=== PATIENT | female | born 1990 | race Caucasian/White ===

== ENCOUNTER → 2019-10-01 14:21 | Outpatient (BNVA) | payer OTHER, SELFPAY | PROVIDERS: Family Provider Family Medicine; Visit Provider Internal Medicine | DX: Z20.89 Contact with and (suspected) exposure to other communicable diseases (principal) | CPT/HCPCS: 87635 ==

== ENCOUNTER 2020-05-18 07:03 | Outpatient (CLI) | payer OTHER, BC, MEDICAID, SELFPAY ==
--- NOTE | 2020-05-18 07:10 | US_ITS ---
WS: [id number] EARLY OBSTETRICAL ULTRASOUND (<14 WEEKS). HISTORY: SUPERVISION NORMAL COMPARISON: None available. Single intrauterine gestational sac is identified. Cardiac activity at 147 BPM. Burwell-rump length jose sures 1.2 cm which corresponds to a gestation of 7w3d. Normal-appearing yolk sac and amnion demonstra caitlin. No subchorionic hemorrhage. No free fluid. Normal size ovaries with no mass. US/US OB <= 14 weeks fetus [id number] IMPRESSION: 1. Single intrauterine gestation of 7 weeks 3 days with an EDC of 01/01/2021. 2. No complications.
== END 2020-05-18 07:04 | disposition home or self-care (01) ==
LOC: US 07:06
PROVIDERS: PCP Family Medicine; Visit Provider Family Medicine
DX: Z34.81 Encounter for supervision of other normal pregnancy, first trimester; Z3A.01 Less than 8 weeks gestation of pregnancy
CPT/HCPCS: 76801

== ENCOUNTER 2020-06-21 10:31 | Outpatient (CLI) | payer OTHER, BC, MEDICAID, SELFPAY ==
--- NOTE | 2020-06-21 10:34 | US_ITS ---
WS: [id number] ULTRASOUND EARLY TECHNIQUE: Transabdominal sonography of the pelvis was performed. CLINICAL INFORMATION: ABSENT HEART TONES,UNSPECIFIED TRIMESTER LMP: 03/28/2020 Beta hCG: Unknown. COMPARISON: May 18, 2020 FINDINGS: Cervix is long and closed measuring 7.8 cm UTERUS AND GESTATIONAL SAC Intrauterine gestations: Estimated gestational age: 12w4d Estimated delivery December 30, 2020 Torrey rump length (CRL): 6.2 cm. heart motion: 171 BPM. Subchorionic hemorrhage: None. OVARIES Right ovary: Normal. Left ovary: Normal. FREE FLUID None. US/US OB limited [id number] IMPRESSION: 1. Single live intrauterine . 2. Estimated gestational age; 12w4d 3. Estimated delivery December 30, 2020 4. Normal adnexa.
== END 2020-06-21 10:32 | disposition home or self-care (01) ==
PROVIDERS: PCP Family Medicine; Visit Provider Family Medicine
DX: O36.8990 Maternal care for other specified fetal problems, unspecified trimester, not applicable or unspecified (principal); Z3A.12 12 weeks gestation of pregnancy
CPT/HCPCS: 76815

== ENCOUNTER 2020-07-21 08:28 | Outpatient (CLI) | payer OTHER, BC, MEDICAID, SELFPAY ==
--- NOTE | 2020-07-21 08:46 | US_ITS ---
WS: [id number] ULTRASOUND OB LIMITED TECHNIQUE: Limited ultrasound examination of the fetus. CLINICAL INFORMATION: ABSENT HEART TONES COMPARISON: June 21, 2020 FINDINGS: Cervix measures 3.8 cm Single interuterine gestation. presentation is cephalic Placental location is anterior. Placenta grade: 0. heart rate 160 BPM. Normal amniotic fluid volume. Anatomy: BDP: 3.6 cm = 17 weeks 1 day HC: 13.6 cm = 17 weeks 1 day AC: 11.8 cm = 17 weeks 4 days FEMUR LENGTH: 2.4 cm = 17 weeks 3 days Estimated weight: 196 g EGA by ultrasound: 17 weeks 2 days NIRAJ by ultrasound: December 27, 2020 [place] [id number] IMPRESSION: 1. Cervix is long and closed. 2. Placenta is anterior grade 0. 3. Normal amniotic fluid volume. 4. Gestational age 17 weeks 2 days with estimated delivery December 27, 2020
== END 2020-07-21 08:29 | disposition home or self-care (01) ==
PROVIDERS: PCP Family Medicine; Visit Provider Family Medicine
DX: O36.8920 Maternal care for other specified fetal problems, second trimester, not applicable or unspecified; Z3A.17 17 weeks gestation of pregnancy
CPT/HCPCS: 76816

== ENCOUNTER 2020-08-09 10:56 | Outpatient (CLI) | payer OTHER, BC, MEDICAID, SELFPAY ==
--- NOTE | 2020-08-09 11:04 | US_ITS ---
WS: [id number] OBSTETRICAL ULTRASOUND COMPLETE HISTORY: SUPERVISION OF NORMAL COMPARISON: 05/18/2020 and 06/22/199910/03 and 07/21/2020 Single intrauterine gestation in transverse presentation. Cervix is Closed and normal length. Cervical length is 5.0 cm. Normal amount of amniotic fluid surrounds the fetus. Placenta: Anterior, no previa or abruption. Placenta grade 1 Heart: 157 BPM. 4 chamber heart not well visualized. Outflow tracts are difficult to visualize. Anatomy: Intracranial structures and spine are normal. kidneys, stomach and urinary bladd er are unremarkable. Cord insertion site and three-vessel cord are limited. 4 extremities are present. profile: Not visualized. Gender: Female. measurements: BPD = 4.5 cm = 19w4d HC = 17.3 cm = 19w6d AC = 14.3 cm = 19w4d FL = 3.3 cm = 20w3d EFW: 324 g. Biometry is internally concordant. AGA by ultrasound: 20w0d NIRAJ by ultrasound: 12/27/2020 US/US OB >= 14 weeks fetus [id number] IMPRESSION: 1. Single intrauterine gestation of 20w0d with an NIRAJ of 12/27/2020. Appropria te growth since the first trimester ultrasound. 2. Limited evaluation of the heart is fluid in the four-chamber view and outflow tracts, abdominal wall and cord insertion site and profile. The remaining anatomy is negative. Consider 3-4 week follow-up.
== END 2020-08-09 10:57 | disposition home or self-care (01) ==
PROVIDERS: PCP Family Medicine; Visit Provider Family Medicine
DX: Z34.92 Encounter for supervision of normal pregnancy, unspecified, second trimester; Z3A.20 20 weeks gestation of pregnancy
CPT/HCPCS: 76805

== ENCOUNTER 2020-08-24 04:17 | Emergency (ER) | payer OTHER, BC, MEDICAID, SELFPAY ==
[2020-08-24 04:35] VITALS: BP 130/77; PULSE 94; RESP 17; TEMP 36.8; O2SAT 99; BMI 43.7
[2020-08-24 04:43] VITALS: BP 121/74; O2SAT 96
--- NOTE | 2020-08-24 04:45 | ED_ITS ---
Documented by User: Gail Tineo MD 08/24/20 04:46 HPI - Abdominal Pain General: Chief Complaint: Abdominal Pain Stated Complaint: RIGHT SIDE RIB PAIN Time Seen by Provider: 08/24/20 04:20 Source: patient Mode of arrival: ambulatory Limitations: no limitations History of Present Illness: HPI narrative: 30-year-old female who is currently 21 weeks states she woke up tonight with a pain in her left upper quadrant that radiated to her epigastric region. She states that she burped a couple times as well. She states she then took 2 Tums the pain is since improved. He states the pain at worst was an 8 out of 10 her pain currently is a 2 out of 10. Denies any lower abdominal pain or vaginal bleeding. Denies any vomiting. Associated Symptoms: Reports nausea; Denies chills, dysuria and fever(s) Review of Systems Const: Denies: fever(s), chills, body aches or change in appetite Eyes: Denies: blurry vision or eye discomfort ENMT: Denies: throat pain or dental pain Card: Denies: chest pain Resp: Denies: dyspnea GI: Reports: abdominal pain and nausea : Denies: dysuria Musc: Denies: neck pain or back pain Skin/Breast: Denies: rash Neuro: Denies: headache(s) Psych: Denies: depression Ashkan/Lymph: Denies: easy bruising All/Imm: Denies: urticaria Physical Exam Const: COMMON NORMALS: no acute distress, patient oriented x3 and healthy appearing HENMT: COMMON NORMALS: normocephalic and atraumatic HEAD & SCALP: normocephalic and atraumatic Eye: COMMON NORMALS: Equal, round and reactive pupils present and EOMs intact bilaterally PUPIL: Yes Equal, round and reactive pupils present Neck/C-Spine: COMMON NORMALS: full ROM and supple Chest: COMMONS NORMALS: normal inspection of the chest and normal palpation of entire chest wall Resp: COMMON NORMALS: normal respiratory effort, No retractions, No use of accessory muscles and clear to auscultation bilaterally AUSCULTATION: clear to auscultation bilaterally Cardio: COMMON NORMALS: regular rate, regular rhythm and No murmurs present (Cardio) RATE: regular rate RHYTHM: regular rhythm GI: COMMON NORMALS: Normal to inspection, nondistended, normoactive bowel sounds present, Soft to palpation, non-tender and no masses PALPATION: Yes Soft to palpation Extremity: COMMON NORMALS: normal to inspection and full ROM Neuro: COMMON NORMALS: patient oriented x3, moves all extremities and no focal motor deficits Psych: COMMON NORMALS: mental status grossly normal, Normal thought process present and cooperative THOUGHT PROCESS: Normal thought process present Skin: COMMON NORMALS: no rashes or lesions noted and no wounds GENERAL SKIN EXAM: no rashes or lesions noted Course Vital Signs: Vital signs: Vital Signs Temperature 98.2 F 08/24/20 04:35 Pulse Rate 94 08/24/20 04:35 Respiratory Rate 17 08/24/20 04:35 Blood Pressure 121/74 08/24/20 04:43 Pulse Oximetry 96 08/24/20 04:43 MDM - Abdominal Pain Lab Data: Labs: Lab Results 08/24/20 08/24/20 Range/Units 05:40 05:40 WBC 11.4 H (4.0-10.0) 10^3/ uL RBC 4.20 (4.1-5.3) 10^6/u L Hgb 11.1 L (11.5-15.3) g/dL Hct 36.1 L (37.0-47.0) % MCV 86.0 (81-99) fL MCH 26.4 L (28.0-34.0) pg MCHC 30.7 (30.0-36.0) g/dL RDW 15.1 (12.1-15.1) % Plt Count 269 (130-400) 10^3/c mm MPV 11.1 H (7.4-10.4) fL Neut % (Auto) 74.9 % Lymph % (Auto) 18.8 % Coke % (Auto) 4.3 % Eos % (Auto) 1.2 % Baso % (Auto) 0.3 % Neut # (Auto) 8.53 H (1.8-7.7) 10^3/u L Lymph # (Auto) 2.1 (0.8-4.8) 10^3/u L Coke # (Auto) 0.5 (0.2-0.9) 10^3/u L Eos # (Auto) 0.1 (0.0-0.8) 10^3/u L Baso # (Auto) 0.0 (0.0-0.1) 10^3/u L Nucleated RBC % (a uto) 0 % Nucleated RBCs # 0.0 /100WBC Sodium 138 (136-145) mmol/L Potassium 3.7 (3.5-5.1) mmol/L Chloride 106 (98-107) mmol/L Carbon Dioxide 22 (22-29) mmol/L Anion Gap 13.7 (5-19) BUN 8 (6-20) mg/dL Creatinine 0.5 (0.5-0.9) mg/dL GFR Calculation 144.9 H (90-130) mL/min Glucose 107 (65-115) mg/dL Calculated Osmolal ity 285 (285-295) mOsm/k g Calcium 8.8 (8.5-10.5) mg/dL Total Bilirubin 0.2 (0.15-1.2) mg/dL AST 20 (0-32) U/L ALT 13 (0-33) U/L Alkaline Phosphata se 121 H (35-105) IU/L Total Protein 6.5 L (6.6-8.7) g/dL Albumin 3.4 L (3.5-5.2) g/dL Globulin 3.1 (1.3-4.6) g/dL Lipase 32 (13-60) U/L Discharge Plan Discharge Patient Disposition: Home Clinical Impression: Biliary colic, Second trimester , Cholelithiasis affecting in second trimester, antepartum Abdominal pain Qualifiers: Abdominal location: epigastric Qualified Code(s): R10.13 - Epigastric pain Condition: Stable Prescriptions: New hydrocodone-acetaminophen 5-325 mg tablet 1 tab PO Q6H PRN (Reason: pain) Qty: 12 RF: 0 Zofran 4 mg tablet 4 mg PO Q6H PRN (Reason: nausea and vomiting) Qty: 10 RF: 2 Discharge Orders: Discharge ED (Routine); Ordered 08/24/20 Ordered By: Phil Emmanuel Referrals: Papito Peres MD [Physician] - (For evaluation of gallstones.) Jeremie Kay MD [Primary Care Provider] - Discharge Diet: Low Fat Discharge Activity: Increase activity as tolerated Patient Instructions: Cholelithiasis, Biliary Colic (ED), Abdominal Pain (ED), Opioid Safety Activity Restrictions/Additional Instructions: You have gallstones in your gallbladder but no inflammation of the gallbladder. Avoid fatty foods as this will stimulate the gallbladder to contract and cause more pain if you eat fatty foods. Follow-up with general surgeon as needed but will likely need to wait until after for your gallbladder removal. Return if problems. Coding Level of Care Code ED Airplane Pilot Photogrammetry for Chg Fwd Exam Comprehensive Documented by User: Phil Emmanuel MD 08/24/20 08:06 HPI - Abdominal Pain General: Chief Complaint: Abdominal Pain Stated Complaint: RIGHT SIDE RIB PAIN Time Seen by Provider: 08/24/20 04:20 Physical Exam GI: COMMON NORMALS: Soft to palpation (Obese, gravid consistent with dates, mild epigastric and luq pain; nabs) and No hepatosplenomegaly present PALPATION: Yes Soft to palpation (Obese, gravid consistent with dates, mild epigastric and luq pain; nabs) and Yes No hepatosplenomegaly present Course ED course: heart tones 160/min Vital Signs: Vital signs: Vital Signs Temperature 98.2 F 08/24/20 04:35 Pulse Rate 94 08/24/20 04:35 Respiratory Rate 17 08/24/20 04:35 Blood Pressure 121/74 08/24/20 04:43 Pulse Oximetry 96 08/24/20 04:43 MDM - Abdominal Pain MDM Narrative: Medical decision making narrative: 0555: assumed care from dr. tineo Lab Data: Attestation: I reviewed the patient's lab results. Labs: Lab Results 08/24/20 08/24/20 Range/Units 05:40 05:40 WBC 11.4 H (4.0-10.0) 10^3/ uL RBC 4.20 (4.1-5.3) 10^6/u L Hgb 11.1 L (11.5-15.3) g/dL Hct 36.1 L (37.0-47.0) % MCV 86.0 (81-99) fL MCH 26.4 L (28.0-34.0) pg MCHC 30.7 (30.0-36.0) g/dL RDW 15.1 (12.1-15.1) % Plt Count 269 (130-400) 10^3/c mm MPV 11.1 H (7.4-10.4) fL Neut % (Auto) 74.9 % Lymph % (Auto) 18.8 % Coke % (Auto) 4.3 % Eos % (Auto) 1.2 % Baso % (Auto) 0.3 % Neut # (Auto) 8.53 H (1.8-7.7) 10^3/u L Lymph # (Auto) 2.1 (0.8-4.8) 10^3/u L Coke # (Auto) 0.5 (0.2-0.9) 10^3/u L Eos # (Auto) 0.1 (0.0-0.8) 10^3/u L Baso # (Auto) 0.0 (0.0-0.1) 10^3/u L Nucleated RBC % (a uto) 0 % Nucleated RBCs # 0.0 /100WBC Sodium 138 (136-145) mmol/L Potassium 3.7 (3.5-5.1) mmol/L Chloride 106 (98-107) mmol/L Carbon Dioxide 22 (22-29) mmol/L Anion Gap 13.7 (5-19) BUN 8 (6-20) mg/dL Creatinine 0.5 (0.5-0.9) mg/dL GFR Calculation 144.9 H (90-130) mL/min Glucose 107 (65-115) mg/dL Calculated Osmolal ity 285 (285-295) mOsm/k g Calcium 8.8 (8.5-10.5) mg/dL Total Bilirubin 0.2 (0.15-1.2) mg/dL AST 20 (0-32) U/L ALT 13 (0-33) U/L Alkaline Phosphata se 121 H (35-105) IU/L Total Protein 6.5 L (6.6-8.7) g/dL Albumin 3.4 L (3.5-5.2) g/dL Globulin 3.1 (1.3-4.6) g/dL Lipase 32 (13-60) U/L Imaging Data ^: US: Radiologist's impression: Ban Joiner #: [id number]: 09/1990Acct#:[id number]/Sex: 30 / FADM Date: 08/24/20Loc: ERRoom/Bed:Attending Dr: Ordering Provider/Ordering MD: Phil Emmanuel MD Date of Service: 08/24/20 Procedure(s): US gall bladder [id number] Accession Number(s): [id number] Report Number: [id number] WS: [id number] RIGHT UPPER QUADRANT ULTRASOUND HISTORY: upper abd pain COMPARISON: None available. Liver: 17.5 cm in length. Liver is top normal to slightly enlarged with mild hepatic steatosis. No mass or bile duct dilatation. Gallbladder: Gallbladder is normally distended. No wall thickening or pericholecystic fluid. Numerous stones with shadowing in the dependent portion of the gallbladder. CBD: 0.5 cm Pancreas: Normal size and echogenicity. Right kidney: 12.4 cm in length. Normal size and echogenicity. No hydronephrosis or mass. Aorta and IVC: Unremarkable abdominal aorta and IVC. No ascites. US/US gall bladder [id number] IMPRESSION: 1. Cholelithiasis. Otherwise no evidence for acute cholecystitis. No gallbladder hydrops or wall thickening. 2. Normal common bile duct. Dictated By:Angelica Campbell DOSigned By:Angelica Campbell DOSigned Date/Time:08/24/20 0740 Discharge Plan Discharge Patient Disposition: Home Clinical Impression: Biliary colic, Second trimester , Cholelithiasis affecting in second trimester, antepartum Abdominal pain Qualifiers: Abdominal location: epigastric Qualified Code(s): R10.13 - Epigastric pain Condition: Stable Prescriptions: New hydrocodone-acetaminophen 5-325 mg tablet 1 tab PO Q6H PRN (Reason: pain) Qty: 12 RF: 0 Zofran 4 mg tablet 4 mg PO Q6H PRN (Reason: nausea and vomiting) Qty: 10 RF: 2 Discharge Orders: Discharge ED (Routine); Ordered 08/24/20 Ordered By: Phil Emmanuel Referrals: Papito Peres MD [Physician] - (For evaluation of gallstones.) Jeremie Kay MD [Primary Care Provider] - Discharge Diet: Low Fat Discharge Activity: Increase activity as tolerated Patient Instructions: Cholelithiasis, Biliary Colic (ED), Abdominal Pain (ED), Opioid Safety Activity Restrictions/Additional Instructions: You have gallstones in your gallbladder but no inflammation of the gallbladder. Avoid fatty foods as this will stimulate the gallbladder to contract and cause more pain if you eat fatty foods. Follow-up with general surgeon as needed but will likely need to wait until after for your gallbladder removal. Return if problems. Coding Level of Care Code ED Airplane Pilot Photogrammetry for Chg Fwd Exam Comprehensive
[2020-08-24] MEDS: lidocaine 2% viscous 15 ML, aluminum-mag hydrox-simethicon 30 ML, sucralfate oral liq 1 GM PO (05:15)
--- NOTE | 2020-08-24 05:59 | US_ITS ---
WS: [id number] RIGHT UPPER QUADRANT ULTRASOUND HISTORY: upper abd pain COMPARISON: None available. Liver: 17.5 cm in length. Liver is top normal to slightly enlarged with mild hepatic steatosis. No ma ss or bile duct dilatation. Gallbladder: Gallbladder is normally distended. No wall thickening or pericholecystic fluid. Numerous stones with shadowing in the dependent portion of the gallbladder. CBD: 0.5 cm Pancreas: Normal size and echogenicity. Right kidney: 12.4 cm in length. Normal size and echogenicity. No hydronephrosis or mass. Aorta and IVC: Unremarkable abdominal aorta and IVC. No ascites. US/US gall bladder [id number] IMPRESSION: 1. Cholelithiasis. Otherwise no evidence for acute cholecystitis. No gallbladd er hydrops or wall thickening. 2. Normal common bile duct.
[2020-08-24 06:14] LABS: Basophils % 0.3 %; Eosinophils # 0.1 10^3/uL (0.0-0.8); Eosinophils % 1.2 %; Hematocrit 36.1 % (37.0-47.0); Hemoglobin 11.1 g/dL (11.5-15.3); Lymphocytes # 2.1 10^3/uL (0.8-4.8); Lymphocytes % 18.8 %; Mean Corpuscular HGB Conc 30.7 g/dL (30.0-36.0); Mean Corpuscular Hemoglobin 26.4 pg (28.0-34.0); Mean Platelet Volume 11.1 fL (7.4-10.4); Monocytes # 0.5 10^3/uL (0.2-0.9); Monocytes % 4.3 %; Neutrophils # 8.53 10^3/uL (1.8-7.7); Neutrophils % 74.9 %; Nucleated Red Blood Cells % 0 %; Platelet Count 269 10^3/cmm (130-400); Red Cell Distribution Width 15.1 % (12.1-15.1); White Blood Count 11.4 10^3/uL (4.0-10.0)
[2020-08-24] MEDS: famotidine 20 mg/2 mL INJ IVP (06:25)
[2020-08-24 06:30] LABS: Alanine Aminotransferase 13 U/L (0-33); Albumin Level 3.4 g/dL (3.5-5.2); Alkaline Phosphatase 121 IU/L (35-105); Anion Gap 13.7 (5-19); Aspartate Amino Transferase 20 U/L (0-32); Blood Urea Nitrogen 8 mg/dL (6-20); Calcium 8.8 mg/dL (8.5-10.5); Carbon Dioxide 22 mmol/L (22-29); Chloride 106 mmol/L (98-107); Globulin 3.1 g/dL (1.3-4.6); Glomerular Filtration Rate 144.9 mL/min (90-130); Glucose 107 mg/dL (65-115); Lipase 32 U/L (13-60); Osmolality Calculated 285 mOsm/kg (285-295); Potassium 3.7 mmol/L (3.5-5.1); Sodium 138 mmol/L (136-145); Total Bilirubin 0.2 mg/dL (0.15-1.2); Total Protein 6.5 g/dL (6.6-8.7)
[2020-08-24 08:22] VITALS: BP 137/73; PULSE 89; RESP 18; O2SAT 98
== END 2020-08-24 08:19 | disposition home or self-care (01) ==
PROVIDERS: Emergency Medicine; Emergency Provider Family Medicine; PCP Family Medicine
DX: O99.612 Diseases of the digestive system complicating pregnancy, second trimester (principal); K80.20 Calculus of gallbladder without cholecystitis without obstruction; Z3A.21 21 weeks gestation of pregnancy
CPT/HCPCS: 76705; 80053; 83690; 85025; 96374; 99283; J3490

== ENCOUNTER 2020-08-24 15:17 | Outpatient (CLI) | payer OTHER, BC, MEDICAID, SELFPAY ==
--- NOTE | 2020-08-24 15:49 | US_ITS ---
WS: [id number] ULTRASOUND OB FOCUSED HISTORY: F/U US Heart, facial PROFILE AND STOMACH WALL/umbilical cord COMPARISON: 08/09/2020 Cervix is closed measuring 5 cm in length. Fetus is in breech position. Continued limited evaluation. profile and four-chamber heart are still not very well visualized. Cord insertion site and abd ominal wall are not well visualized. heart rate at 141 BPM. Normal amount of amniotic fluid. US/[place] [id number] IMPRESSION: Continued very limited evaluation of four-chamber heart, profile and abdo boby wall. Difficulties secondary to body habitus and position of the fetus.
== END 2020-08-24 15:18 | disposition home or self-care (01) ==
PROVIDERS: PCP Family Medicine; Visit Provider Family Medicine
DX: Z34.80 Encounter for supervision of other normal pregnancy, unspecified trimester (principal)
CPT/HCPCS: 76816

== ENCOUNTER 2020-09-27 14:58 | Outpatient (CLI) | payer OTHER, BC, MEDICAID, SELFPAY ==
--- NOTE | 2020-09-27 15:17 | US_ITS ---
WS: [id number] ULTRASOUND OB LIMITED TECHNIQUE: Limited ultrasound examination of the fetus. CLINICAL INFORMATION: FOLLOW UP HEART, CORD INSERT, STOMACH AND PROFILE COMPARISON: August 24, 2020 FINDINGS: Cervix measures 4.7 cm Single interuterine gestation. presentation is vertex Placental location is anterior. Placenta grade: 0. heart rate 141 BPM. Anatomy: profile, four-chamber heart, right ventricular outflow tract, and cord insertion are normal tod ay. Left ventricular outflow tract not well visualized. US/[place] [id number] IMPRESSION: 1. Closed cervix measures 4.7 CM. 2. presentation is vertex. 3. profile, four-chamber heart, right ventricular outflow tract, and cor d insertion are normal today. Left ventricular outflow tract not well visualize d.
== END 2020-09-27 14:59 | disposition home or self-care (01) ==
LOC: US 14:59
PROVIDERS: PCP Family Medicine; Visit Provider Family Medicine
DX: Z36.89 Encounter for other specified antenatal screening (principal)
CPT/HCPCS: 76816

== ENCOUNTER 2020-10-05 20:28 | Outpatient (CLI) | payer OTHER, BC, MEDICAID, SELFPAY ==
[2020-10-05 20:43] VITALS: BP 120/66; PULSE 81; TEMP 36.4
[2020-10-05 21:15] VITALS: RESP 18
[2020-10-05 21:18] VITALS: BMI 43.0
[2020-10-05 21:37] LABS: Charge for UA Resulting for Rev
[2020-10-05 21:51] LABS: Add Urine Microscopic? YES; Bacteria Urine 3+ /hpf; Bilirubin Urine Neg (Negative); Blood Urine Neg (Negative); Glucose Urine UA Norm (Normal); Ketones Urine Negative (Negative); Leukocyte Esterase Urine Trace (Negative); Mucus Urine 1+ /hpf; Nitrate Urine Negative (Negative); Protein Urine Neg (Negative); Specific Gravity, Urine 1.005 (1.005-1.030); Urine Appearance Clear (CLEAR); Urine Color Straw (Yellow); Urobilinogen Urine Norm (Negative); pH Urine 7 (5-7)
[2020-10-05 21:52] LABS: Add Urine Culture? Yes
[2020-10-05 22:13] VITALS: BP 124/63; PULSE 76
== END 2020-10-05 22:45 | disposition home or self-care (01) ==
LOC: OPOB 20:35 → OBGYN 20:36
PROVIDERS: PCP Family Medicine; Visit Provider Family Medicine
DX: O26.899 Other specified pregnancy related conditions, unspecified trimester (principal); Z3A.00 Weeks of gestation of pregnancy not specified; R10.9 Unspecified abdominal pain
CPT/HCPCS: 81001; 81003; 87086

== ENCOUNTER 2020-10-29 09:27 | Outpatient (CLI) | payer OTHER, BC, MEDICAID, SELFPAY ==
--- NOTE | 2020-10-29 09:34 | US_ITS ---
WS: [id number] ULTRASOUND OB LIMITED TECHNIQUE: Limited ultrasound examination of the fetus. CLINICAL INFORMATION: SUPERVISION OF NORMAL /EFW/WILLIAM COMPARISON: September 27, 2020 FINDINGS: Cervix measures 6.2 cm Single interuterine gestation. presentation is breech Placental location is anterior. Placenta grade: 1 heart rate 164 BPM. Anatomy: BDP: 8.1 cm = 32w3d HC: 30.1 cm = 33w3d AC: 26.8 cm = 30w6d FEMUR LENGTH: 6.0 cm = 31w0d Estimated weight: 1735 g EGA by ultrasound: 32w0d NIRAJ by ultrasound: 12/24/2020 US/[place] [id number] IMPRESSION: 1. Cervix is long and closed measuring 6.2 cm 2. WILLIAM 13.1 cm just below the median 3. presentation is breech.
== END 2020-10-29 09:28 | disposition home or self-care (01) ==
PROVIDERS: PCP Family Medicine; Visit Provider Family Medicine
DX: O32.1XX0 Maternal care for breech presentation, not applicable or unspecified (principal); Z3A.32 32 weeks gestation of pregnancy
CPT/HCPCS: 76816

== ENCOUNTER 2020-11-25 08:50 | Outpatient (CLI) | payer OTHER, BC, MEDICAID, SELFPAY ==
[2020-11-25] VITALS (29 sets, daily range): BP systolic 108–125; BP diastolic 65–76; PULSE 80–110; RESP 16; TEMP 36.5; O2SAT 92–99; BMI 43.2
[2020-11-25 10:12] LABS: Basophils % 0.2 %; Eosinophils # 0.1 10^3/uL (0.0-0.8); Eosinophils % 0.8 %; Hematocrit 36.1 % (37.0-47.0); Hemoglobin 11.3 g/dL (11.5-15.3); Lymphocytes # 1.7 10^3/uL (0.8-4.8); Lymphocytes % 15.2 %; Mean Corpuscular HGB Conc 31.3 g/dL (30.0-36.0); Mean Platelet Volume 11.7 fL (7.4-10.4); Monocytes # 0.5 10^3/uL (0.2-0.9); Monocytes % 4.3 %; Neutrophils # 8.81 10^3/uL (1.8-7.7); Neutrophils % 79.1 %; Nucleated Red Blood Cells % 0 %; Platelet Count 295 10^3/cmm (130-400); Red Blood Count 4.35 10^6/uL (4.1-5.3); Red Cell Distribution Width 14.4 % (12.1-15.1); White Blood Count 11.1 10^3/uL (4.0-10.0)
[2020-11-25] MEDS: acetaminophen 500 mg Tablet 1000 MG PO (10:13)
[2020-11-25 10:33] LABS: Add Urine Microscopic? YES; Bilirubin Urine Neg (Negative); Blood Urine Neg (Negative); Glucose Urine UA Norm (Normal); Ketones Urine Negative (Negative); Leukocyte Esterase Urine 1+ (Negative); Nitrate Urine Negative (Negative); Protein Urine Neg (Negative); Urine Appearance Hazy (CLEAR); Urine Color Yellow (Yellow); Urobilinogen Urine Norm (Negative); pH Urine 7 (5-7)
[2020-11-25 10:34] LABS: RBC Urine 0-4 /hpf (0-2)
[2020-11-25 10:35] LABS: Add Urine Culture? No; Bacteria Urine 1+ /hpf; Mucus Urine 2+ /hpf; Squamous Epithelial Cell Urine 15-25 /hpf (0-5); Transitional Epi Cells Urine 0-4 /hpf
[2020-11-25 10:38] LABS: Alanine Aminotransferase 17 U/L (0-33); Albumin Level 3.4 g/dL (3.5-5.2); Alkaline Phosphatase 179 IU/L (35-105); Aspartate Amino Transferase 13 U/L (0-32); Blood Urea Nitrogen 7 mg/dL (6-20); Calcium 9.4 mg/dL (8.5-10.5); Carbon Dioxide 21 mmol/L (22-29); Chloride 104 mmol/L (98-107); Globulin 3.4 g/dL (1.3-4.6); Glomerular Filtration Rate 187.4 mL/min (90-130); Glucose 91 mg/dL (65-115); Osmolality Calculated 284 mOsm/kg (285-295); Sodium 138 mmol/L (136-145); Total Bilirubin 0.2 mg/dL (0.15-1.2); Total Protein 6.8 g/dL (6.6-8.7); Uric Acid 4.2 mg/dL (2.4-5.7)
[2020-11-25 10:42] LABS: UPRO/UCREAT Ratio 0.09 mg/mg CR; Urine Creatinine 124 mg/dL (28-217); Urine Protein Random 11 mg/dL
== END 2020-11-25 11:04 | disposition home or self-care (01) ==
LOC: OPOB 08:57 → OBGYN 08:58
PROVIDERS: PCP Family Medicine; Visit Provider Family Medicine
DX: O26.899 Other specified pregnancy related conditions, unspecified trimester (principal); Z3A.00 Weeks of gestation of pregnancy not specified; R51.9 Headache, unspecified; H53.9 Unspecified visual disturbance
CPT/HCPCS: 36415; 59025; 80053; 81001; 82570; 84156; 84550; 85025; 99211

== ENCOUNTER 2020-12-04 22:02 | Observation (INO) | payer OTHER, BC, MEDICAID, SELFPAY ==
[2020-12-04] VITALS (22 sets, daily range): BP systolic 114–139; BP diastolic 60–90; PULSE 58–104; TEMP 37; O2SAT 98–100
[2020-12-04] MEDS: NIFEdipine 10 mg Capsule 30 MG PO (20:47)
[2020-12-04] MEDS: acetaminophen 325 mg Tablet 650 MG PO (20:47)
--- NOTE | 2020-12-04 22:15 | PC.NURSE ---
RN at bedside discussing plan of care with patient. Patient asked about details from her first labor since patient reported that she had a primary for failure to progress and non-reassuring heart tones. Patient informs nurse that she was induced for gestational hypertension and received 2 doses of cytotec but made no cervical change from 1 dilation in almost 10 hours of labor. Patient was educated at this time about Dr. Luis giving her the option to if she would like. Patient states that due to past trauma, she wants to continue with plan for repeat .
[2020-12-04 23:41] LABS: Basophils % 0.2 %; Eosinophils # 0.1 10^3/uL (0.0-0.8); Eosinophils % 0.9 %; Hematocrit 35.4 % (37.0-47.0); Hemoglobin 11.4 g/dL (11.5-15.3); Lymphocytes # 2.7 10^3/uL (0.8-4.8); Lymphocytes % 21.7 %; Mean Corpuscular HGB Conc 32.2 g/dL (30.0-36.0); Mean Corpuscular Hemoglobin 26.6 pg (28.0-34.0); Mean Corpuscular Volume 82.5 fl (81-99); Mean Platelet Volume 11.4 fL (7.4-10.4); Monocytes # 0.6 10^3/uL (0.2-0.9); Monocytes % 4.9 %; Neutrophils # 9.08 10^3/uL (1.8-7.7); Neutrophils % 71.8 %; Nucleated Red Blood Cells % 0 %; Platelet Count 309 10^3/cmm (130-400); Red Blood Count 4.29 10^6/uL (4.1-5.3); Red Cell Distribution Width 14.7 % (12.1-15.1); White Blood Count 12.6 10^3/uL (4.0-10.0)
[2020-12-04] MEDS: lactated ringers 1,000 ML 999 ML IV (23:43)
[2020-12-05] VITALS (12 sets, daily range): BP systolic 101–119; BP diastolic 55–65; PULSE 71–87; RESP 17
[2020-12-05 00:32] LABS: Bilirubin Urine Neg (Negative); Blood Urine Neg (Negative); Glucose Urine UA Norm (Normal); Ketones Urine Negative (Negative); Leukocyte Esterase Urine Negative (Negative); Nitrate Urine Negative (Negative); Protein Urine Neg (Negative); Urine Appearance Clear (CLEAR); Urine Color Yellow (Yellow); Urobilinogen Urine Norm (Negative); pH Urine 6.5 (5-7)
[2020-12-05 00:33] LABS: Add Urine Culture? No; Bacteria Urine TRACE /hpf; RBC Urine 0-4 /hpf (0-2); Squamous Epithelial Cell Urine 0-4 /hpf (0-5); WBC Urine 0-4 /hpf (0-5)
[2020-12-05] MEDS: dextrose 5%-lactated ringers 1,000 ML 125 ML IV (00:42)
[2020-12-05] MEDS: morphine 4 mg/mL SDV 1 mL 2 MG IM (01:32)
--- NOTE | 2020-12-05 09:31 | US_ITS ---
WS: [id number] ULTRASOUND OB LIMITED TECHNIQUE: Limited ultrasound examination of the fetus. CLINICAL INFORMATION: BPP, WILLIAM, Placenta COMPARISON: None. FINDINGS: Cervix measures 5.4 cm Single interuterine gestation. Placental location is anterior. Placenta grade: 1 heart rate 141 BPM WILLIAM 12.7 cm Biophysical profile 8 out of 8. breathin movement: 2 tone: 2 Amniotic fluid: 2 US/US OB lmt w/ BPP wo NST IMPRESSION: 1. Normal biophysical profile 8 out of 8 2. WILLIAM 12.76 cm just below the median
--- NOTE | 2020-12-05 09:50 | P.SS_ITS ---
Short Stay Summary Providers Date of Admit/Discharge: 12/06/20 Attending Provider: Maury Luis MD Primary Care Provider: Jeremie Kay MD Chief Complaint: Contractions HPI History of Present Illness Ban Joiner is a 30 year old G2, P1 at 36.0 weeks gestation by LMP consistent with 7-week ultrasound. Her is complicated by obesity, history of gestational hypertension, history of low transverse section for intolerance of labor, rubella nonimmune. The patient presented with headaches given Miguel to start with rubbing them and then basically we will treat him in the same time and he is currently complains of and he seems to be developing Inessa is here for a preop visit is for surgery's he has had but evaluation is good to return Marisol graduate right with is working on the option but the brother is watching there seems like he still is right yet so and it is stating that he no likely is back to doing Neulasta on the was back there with Sepsis -We will tag team and if you noticed in terms of making sure that none the same page right on he does a time so smooth by so relaxes her children at about life in general this is what is surfacing is 10 selectively drivers overall anything about his paperwork he likes the O ACEs and still he does 0 48 surgeries today or whenever it is like having to pay for them is That Somebody Help Him Get That to labor and delivery triage secondary to increasing contractions that started at 5:20 PM on 12/04/2020. The patient has had significant pain with contractions that was rated as a 7 out of 10. The contractions were every 3 to 5 minutes and getting stronger so she presented to triage for further evaluation. In triage she was given 1 dose of Procardia and IV fluids. The patient denies any nausea, vomiting, fevers, chest pains, shortness of breath, vaginal bleeding, leakage of fluid, dysuria. Home Meds/Allergies Home Medications and Allergies Home Medications Medication Instructions Recorded Confirmed Type aspirin 81 mg tablet,delayed 81 mg PO DAILY 08/31/20 12/05/20 History release cetirizine 10 mg capsule 10 mg PO DAILY PRN 08/31/20 12/05/20 History vit no.95-ferrous 1 tab PO DAILY 08/31/20 12/05/20 History fumarate 28 mg-folic acid 800 mcg tablet ferrous sulfate 325 mg PO DAILY 11/25/20 12/05/20 History Allergies Allergy/AdvReac Type Severity Reaction Status Date / Time Penicillins Allergy Mild rash, Verified 08/31/20 11:35 blisters in mouth PFSH Acute PFSH: Medical History (Updated 12/05/20 @ 09:54 by Maury Luis MD) History of gestational hypertension Surgical History History of x1 History of dental surgery Family History Other Dementia Diabetes Denies family history of CAD (coronary artery disease) Psychiatric illness Chronic kidney disease (CKD) Lung disease Cancer Stroke Social History Smoking and tobacco status: never smoked Second hand smoke exposure: No Alcohol intake: never Lives independently: Yes Household members: spouse and children Marital status: Female Reproductive History: : 2 Vitals/I&O/Wt Last Vital Signs Temp 98.6 F 12/04/20 23:55 Pulse 80 12/05/20 09:09 Resp 17 12/05/20 01:32 BP 119/65 12/05/20 09:09 Pulse Ox 99 12/04/20 20:45 12/04/20 12/05/20 12/05/20 22:59 06:59 14:59 Intake Total 982.35 / 982.35 Balance 982.35 / 982.35 Physical Exam Narrative: EXAM NARRATIVE: General: Alert and oriented x3 Eyes: Pupils equal round and reactive to light and accommodation Mouth: Mucous membranes moist, pharynx non-erythematous Cardiac: Regular rate and rhythm without murmurs Lungs: Clear to auscultation bilaterally without wheezes, crackles or rhonchi Abdomen: Soft, non-tender, fundus consistent with gestational age Extremities: Trace edema in the bilateral lower extremities Hospital Course Hospital Course The patient's contractions have gradually spaced out since overnight. They are becoming less painful. She has not made any change. We will check an ultrasound to rule out underlying complications. As long as this looks good we will plan to discharge the patient home. I discussed with her and her the findings of contractions without labor since her cervix is not changing. They live close and if her pain is worsening, they were instructed to return for further evaluation. She is to keep her activity level low for the next couple of days and we will reevaluate in clinic tomorrow. Precautions were discussed. The patient and her significant other are in agreement with the current plan of care. All questions were answered. SSS Data Data Completed and Pending: Pending at discharge Category Date Time Status US OB lmt w/ feta l BPP wo NST Stat Ultrasound 12/05/20 09:31 Ordered Discharge Plan Discharge Patient Disposition: Home Prescriptions: Continued Allergy Relief (cetirizine) 10 mg capsule 10 mg PO DAILY PRN (Reason: Allergy Symptoms) RF: 0 PNV cmb#95-ferrous fumarate-FA [ Multivitamins] 28 mg iron- 800 mcg tablet 1 tab PO DAILY RF: 0 aspirin 81 mg tablet,delayed release (DR/EC) 81 mg PO DAILY RF: 0 ferrous sulfate 325 mg (65 mg iron) Tablet 325 mg PO DAILY RF: 0 Discharge Orders: Discharge Order (Routine); Ordered 12/05/20 Ordered By: Maury Luis Patient Instructions: Return to Work Instructions (DC), OB Undelivered Discharge Attestations Medical Necessity Statement*: The patient was observed overnight secondary to frequent contractions. She is not showing signs of making change, so her stay will not cross 2 midnights at this time. Time Spent in Patient Care*: greater than 30 min Quality Metrics Clinical Quality Measures: During this hospital stay, did patient experience: None Coding Level of Care Code Acute Linux System Engineer for Amari Castro
--- NOTE | 2020-12-09 08:41 | P.SS_ITS ---
Short Stay Summary Providers Date of Admit/Discharge: 12/05/20 Attending Provider: Maury Luis MD Primary Care Provider: Jeremie Kay MD Chief Complaint: Contractions HPI History of Present Illness Ban Joiner is a 30 year old G2, P1 at 36.0 weeks gestation by LMP consistent with 7-week ultrasound. Her is complicated by obesity, history of gestational hypertension, history of low transverse section for intolerance of labor, rubella nonimmune. The patient presented to labor and delivery triage secondary to increasing contractions that started at 5:20 PM on 12/04/2020. The patient has had significant pain with contractions that was rated as a 7 out of 10. The contractions were every 3 to 5 minutes and getting stronger so she presented to triage for further evaluation. In triage she was given 1 dose of Procardia and IV fluids. The patient denies any nausea, vomiting, fevers, chest pains, shortness of breath, vaginal bleeding, leakage of fluid, dysuria. Home Meds/Allergies Home Medications and Allergies Home Medications Medication Instructions Recorded Confirmed Type aspirin 81 mg tablet,delayed 81 mg PO DAILY 08/31/20 12/07/20 History release cetirizine 10 mg capsule 10 mg PO DAILY PRN 08/31/20 12/07/20 History vit no.95-ferrous 1 tab PO DAILY 08/31/20 12/07/20 History fumarate 28 mg-folic acid 800 mcg tablet ferrous sulfate 325 mg PO DAILY 11/25/20 12/07/20 History Allergies Allergy/AdvReac Type Severity Reaction Status Date / Time Penicillins Allergy Mild rash, Verified 08/31/20 11:35 blisters in mouth PFSH Acute PFSH: Medical History History of gestational hypertension Surgical History History of x1 History of dental surgery Family History Other Dementia Diabetes Denies family history of CAD (coronary artery disease) Psychiatric illness Chronic kidney disease (CKD) Lung disease Cancer Stroke Social History Smoking and tobacco status: never smoked Second hand smoke exposure: No Alcohol intake: never Lives independently: Yes Household members: spouse and children Marital status: Female Reproductive History: : 2 Vitals/I&O/Wt Last Vital Signs Temp 98.6 F 12/04/20 23:55 Pulse 80 12/05/20 10:02 Resp 17 12/05/20 01:32 BP 119/65 12/05/20 10:02 Pulse Ox 99 12/04/20 20:45 Physical Exam Narrative: EXAM NARRATIVE: General: Alert and oriented x3 Eyes: Pupils equal round and reactive to light and accommodation Mouth: Mucous membranes moist, pharynx non-erythematous Cardiac: Regular rate and rhythm without murmurs Lungs: Clear to auscultation bilaterally without wheezes, crackles or rhonchi Abdomen: Soft, non-tender, fundus consistent with gestational age Extremities: Trace edema in the bilateral lower extremities Hospital Course Hospital Course The patient's contractions have gradually spaced out since overnight. They are becoming less painful. She has not made any change. We will check an ultrasoun d to rule out underlying complications. As long as this looks good we will plan to discharge the patient home. I discussed with her and her the findings of contractions without labor since her cervix is not changing. They live close and if her pain is worsening, they were instructed to return for further evaluation. She is to keep her activity level low for the next couple of days and we will reevaluate in clinic tomorrow. Precautions were discussed. The patient and her significant other are in agreement with the current plan of care. All questions were answered. SSS Data Data Completed and Pending: Completed Studies During Hospitalization Category Date Time Status US OB lmt w/ feta l BPP wo NST Stat Ultrasound 12/05/20 09:31 Completed Diagnoses at Discharge Discharge Diagnosis (1) Intrauterine : Status: Acute Discharge Plan Discharge Patient Disposition: Home Prescriptions: Continued Allergy Relief (cetirizine) 10 mg capsule 10 mg PO DAILY PRN (Reason: Allergy Symptoms) RF: 0 PNV cmb#95-ferrous fumarate-FA [ Multivitamins] 28 mg iron- 800 mcg tablet 1 tab PO DAILY RF: 0 aspirin 81 mg tablet,delayed release (DR/EC) 81 mg PO DAILY RF: 0 ferrous sulfate 325 mg (65 mg iron) Tablet 325 mg PO DAILY RF: 0 Discharge Orders: Discharge Order (Routine); Ordered 12/05/20 Ordered By: Maury Luis Patient Instructions: Return to Work Instructions (DC), OB Undelivered Discharge Attestations Medical Necessity Statement*: The patient was observed overnight secondary to frequent contractions. She is not showing signs of making change, so her stay will not cross 2 midnights at this time. Time Spent in Patient Care*: greater than 30 min Quality Metrics Clinical Quality Measures: During this hospital stay, did patient experience: None Coding Level of Care Code Acute Hoop Machine Operator for Chg Fwd Diagnoses Intrauterine Z34.90
== END 2020-12-05 10:33 | disposition home or self-care (01) ==
PROVIDERS: Admitting Provider Family Medicine; PCP Family Medicine; Visit Provider Family Medicine
DX: O60.03 Preterm labor without delivery, third trimester (principal); Z3A.36 36 weeks gestation of pregnancy; O13.9 Gestational [pregnancy-induced] hypertension without significant proteinuria, unspecified trimester; O99.213 Obesity complicating pregnancy, third trimester; Z79.82 Long term (current) use of aspirin
CPT/HCPCS: 36415; 76815; 76819; 81001; 85025; 96372; 99211; G0378; J2270

== ENCOUNTER → 2020-12-24 07:57 | Outpatient (BNVA) | payer OTHER, BC, MEDICAID, SELFPAY | PROVIDERS: PCP Family Medicine; Visit Provider Surgery | DX: Z20.822 Contact with and (suspected) exposure to COVID-19 (principal); Z11.52 Encounter for screening for COVID-19 | CPT/HCPCS: 87635 ==

== ENCOUNTER 2020-12-27 05:00 | Inpatient (IN) | payer OTHER, BC, MEDICAID, SELFPAY ==
--- NOTE | 2020-12-10 09:34 | ANES.PREANE2 ---
Pre-Anesthetic Assessment Pre-Anesthetic Assessment: Height/Weight: Height 1.73 m Proposed Procedure: Operation Date: 12/27/20 07:00 Proposed Procedures p Section Repeat With Tubal(Not Applicable) - Maury Luis MD Was Beta Casie taken within 24 hours: N/A Was Clonidine taken within 24 hours: N/A Social: Social History: No alcohol and No tobacco Exam: Pre-Anes Outpt Exam: alert, oriented x 3, clear to auscultation bilaterally and regular rate & rhythm Airway: Submandibular: WNL Cervical ROM: WNL MP: 2 Dentition: Full CV/HEM: CV/HEM: Anemia Metabolic: Metabolic: Morbid obesity Anesthetic Plan: ASA status: 3 Anesthesia: Regional (specify below) (SAB) PFSH Anesthesia PFSH: Medical History History of gestational hypertension Surgical History History of x1 History of dental surgery Family History Other Dementia Diabetes Denies family history of CAD (coronary artery disease) Psychiatric illness Chronic kidney disease (CKD) Lung disease Cancer Stroke Social History Smoking and tobacco status: never smoked Second hand smoke exposure: No Alcohol intake: never Lives independently: Yes Household members: spouse and children Marital status: Data Anesthesia Cardiac Studies: No Data to Display
[2020-12-27] VITALS (31 sets, daily range): BP systolic 106–142; BP diastolic 57–90; PULSE 67–89; RESP 14–18; TEMP 35.9–36.9; O2SAT 95–100; BMI 43.4
[2020-12-27] MEDS: lactated ringers 1,000 ML 999 ML IV (06:10)
[2020-12-27 06:17] LABS: Basophils % 0.4 %; Eosinophils # 0.1 10^3/uL (0.0-0.8); Eosinophils % 0.6 %; Hematocrit 35.2 % (37.0-47.0); Hemoglobin 11.1 g/dL (11.5-15.3); Lymphocytes # 2.2 10^3/uL (0.8-4.8); Lymphocytes % 20.1 %; Mean Corpuscular HGB Conc 31.5 g/dL (30.0-36.0); Mean Corpuscular Hemoglobin 26.1 pg (28.0-34.0); Mean Corpuscular Volume 82.8 fl (81-99); Mean Platelet Volume 12.1 fL (7.4-10.4); Monocytes # 0.6 10^3/uL (0.2-0.9); Monocytes % 5.1 %; Neutrophils # 7.96 10^3/uL (1.8-7.7); Neutrophils % 73.4 %; Nucleated Red Blood Cells % 0 %; Platelet Count 260 10^3/cmm (130-400); Red Blood Count 4.25 10^6/uL (4.1-5.3); Red Cell Distribution Width 14.9 % (12.1-15.1); White Blood Count 10.8 10^3/uL (4.0-10.0)
[2020-12-27] MEDS: clindamycin 900 MG/50 ML PREMIX 100 MG IV (06:18)
[2020-12-27] MEDS: famotidine 20 mg/2 mL INJ IVP (06:53)
[2020-12-27] MEDS: citric acid-sodium citrate 30 mL UDC PO (06:53)
[2020-12-27] MEDS: metoclopramide 5 mg/mL SDV 2 mL 10 MG IVP (06:54)
--- NOTE | 2020-12-27 07:02 | PM.HP ---
Providers/Chief Complaint Admitting Physician: Maury Luis MD Chief Complaint: C SECTION [id number] History of Present Illness Ban Joiner is a 30 year old G2, P1 at 39.1 weeks gestation by LMP consistent with 7-week ultrasound. Her is complicated by obesity, history of low transverse section for intolerance of labor, rubella nonimmune, gallbladder disease. The patient presents to labor and delivery triage for a scheduled repeat low-transverse section with bilateral tubal ligation. The patient is feeling well today. She denies any chest pain, shortness of breath, nausea, vomiting, diarrhea, constipation, fever, dysuria, leakage of fluid, vaginal bleeding. The patient plans to have a cholecystectomy done on 12/29/2020 secondary to gallbladder issues during . She will have this done by Dr. Peres. Medications/Allergies Home Medications Medication Instructions Recorded Confirmed Last Taken Type aspirin 81 mg tablet,delayed 81 mg PO DAILY 08/31/20 12/27/20 12/21/20 08:00 History release cetirizine 10 mg capsule 10 mg PO DAILY PRN 08/31/20 12/27/20 12/26/20 20:00 History vit no.95-ferrous 1 tab PO DAILY 08/31/20 12/27/20 12/26/20 20:00 History fumarate 28 mg-folic acid 800 mcg tablet ferrous sulfate 325 mg PO DAILY 11/25/20 12/27/20 12/26/20 20:00 History Allergies Allergy/AdvReac Type Severity Reaction Status Date / Time Penicillins Allergy Mild rash, Verified 08/31/20 11:35 blisters in mouth PFSH Acute PFSH: Medical History (Updated 12/27/20 @ 07:04 by Maury Luis MD) History of gestational hypertension Surgical History History of x1 History of dental surgery Family History Other Dementia Diabetes Denies family history of CAD (coronary artery disease) Psychiatric illness Chronic kidney disease (CKD) Lung disease Cancer Stroke Social History Smoking and tobacco status: never smoked Second hand smoke exposure: No Alcohol intake: never Lives independently: Yes Household members: spouse and children Marital status: Female Reproductive History: : 2 Vitals/I&O/Wt Last Vital Signs Pulse 76 12/27/20 06:41 Resp 17 12/27/20 05:31 BP 135/67 12/27/20 06:41 Weight last 48 hrs Weight 286 lb Physical Exam Narrative: EXAM NARRATIVE: General: Alert and oriented x3 Eyes: Pupils equal round and reactive to light and accommodation Mouth: Mucous membranes moist, pharynx non-erythematous Cardiac: Regular rate and rhythm without murmurs Lungs: Clear to auscultation bilaterally without wheezes, crackles or rhonchi Abdomen: Soft, non-tender, fundus consistent with gestational age Extremities: Trace edema in the bilateral lower extremities Data : 12/27/20 06:05 A&P Assessment and plan (1) Gallbladder disease: Status: Acute (2) Intrauterine : Status: Acute (3) Rubella non-immune status, antepartum: Status: Acute Additional A&P Information The patient is doing well at this time. We will proceed with a repeat low transverse section with bilateral tubal ligation. The patient verbalizes that she would like to have the tubal done today. The patient had a negative COVID screen done on , 12/23/2020. All questions answered. Attestations Medical Necessity Statement*: The patient will be here for greater than 2 midnights due to routine intrapartum and management of section. Coding Level of Care Code Acute Cotton Stomper for Chg Fwd Diagnoses Gallbladder disease K82.9 Intrauterine Z34.90 Rubella non-immune status, antepartum O99.891; Z28.3
--- NOTE | 2020-12-27 07:52 | ANES.PAUD2 ---
Pre-Anesthetic Update Pre-Anesthetic Assessment: Date of Surgery/Procedure: 12/27/20 Proposed Procedure: Operation Date: 12/27/20 07:00 Proposed Procedures p Section Repeat With Tubal(Not Applicable) - Maury Luis MD Last Intake: Intake Last Liquid Date 12/26/20 Last Liquid Time 22:00 Last Solid Date 12/26/20 Last Solid Time 19:00 Labs Last 48hrs: Laboratory Results - last 48 hr 12/27/20 06:05 WBC 10.8 H RBC 4.25 Hgb 11.1 L Hct 35.2 L MCV 82.8 MCH 26.1 L MCHC 31.5 RDW 14.9 Plt Count 260 MPV 12.1 H Neut % (Auto) 73.4 Lymph % (Auto) 20.1 [place] % (Auto) 5.1 Eos % (Auto) 0.6 Baso % (Auto) 0.4 Neut # (Auto) 7.96 H Lymph # (Auto) 2.2 [place] # (Auto) 0.6 Eos # (Auto) 0.1 Baso # (Auto) 0.0 Nucleated RBC % (a uto) 0 Nucleated RBCs # 0.0 Vitals: Pulse Rate 76 12/27/20 06:41 Pulse Rhythm 12/27/20 05:57 Pulse Strength 3+ Normal 12/27/20 05:57 Respiratory Rate 17 12/27/20 05:31 Respiratory Effort Non-Labored 12/27/20 05:57 Respiratory Depth Normal 12/27/20 05:57 Respiratory Patter n 12/27/20 05:57 Blood Pressure 135/67 12/27/20 06:41 Oxygen Delivery Me thod 12/27/20 05:57 Cardiac Studies: No Data to Display
--- NOTE | 2020-12-27 09:12 | PM.OP ---
Operative Report Date of procedure: December 27, 2020 Pre-op Diagnosis: 1. Intrauterine at 39.1 weeks gestation 2. History of low transverse section requesting repeat section with bilateral tubal ligation 3. Obesity 4. Gallbladder disease during 5. Rubella nonimmune Post-op Diagnosis: 1. Intrauterine status post repeat low transverse with bilateral tubal ligation at 39.1 weeks gestation 2. History of low transverse section 3. Obesity 4. Gallbladder disease during 5. Rubella nonimmune 6. Clinically oligohydramnios 7. Nuchal cord x1 8. Delivery of healthy infant female weighing 8 pounds 5 ounces with Apgars of 9 and 9 Procedure Done: Repeat low transverse section Bilateral tubal ligation Pathology: other Pathology: Bilateral fallopian tube segments sent to pathology Surgeon: Maury Luis Anesthesia: Other (Spinal) Estimated blood loss (mL): 300 Complications: None Findings: 1. Delivery of healthy infant female weighing 8 pounds 5 ounces with Apgars of 9 and 9 2. Intact placenta with central umbilical cord insertion site. Condition: stable Disposition: floor Brief History: The patient presented to labor and delivery triage for a scheduled repeat low-transverse section. The patient requested a bilateral tubal ligation. The patient had been feeling well and denied any leaking of fluid, vaginal bleeding, fevers, chest pain, shortness of breath, nausea, vomiting, diarrhea, constipation, dysuria. Procedure: After informed consent was obtained, the patient was taken to the operating room and the patient was prepped and draped in a normal sterile fashion in the dorsal supine position. A spinal epidural was placed and adequate anesthesia was confirmed. At 7:33 AM on 12/27/2020, a Pfannenstiel skin incision was made and carried through to the underlying layer of fascia using a scalpel. The fascial incision was then extended laterally using curved Mayos. The fascia was then grasped with Nadira clamps and the underlying rectus muscles were dissected off taking care to avoid injury to the underlying tissues. The peritoneum was entered bluntly with one digit. It was then bluntly. The bladder blade was placed and the vesicouterine peritoneum was well below the lower uterine segment of the uterus. The uterine incision was made in the lower uterine segment in a transverse fashion with the scalpel at 7:40 AM. The amniotic membrane was entered bluntly and a small amount of clear fluid was noted. The infant's head delivered atraumatically without difficulty at 7:41 AM. There was 1 nuchal cord and the cord was also wrapped around her arm and leg. The mouth and nose were suctioned. The rest of the infant delivered without difficulty. The infant was crying immediately upon delivery. The cord was clamped and cut and the was handed to the awaiting pediatric nurses. The placenta was then manually expressed. The uterus was then exteriorized from the abdomen and a wet lap was used to clear the uterus of clots and debris. The bladder blade was reinserted and the uterine incision was closed using 0 chromic in a running locking fashion. A second layer of the same suture was used in the same manner. Excellent hemostasis was obtained. The bilateral fallopian tubes were identified. A modified [place] technique was used. The right tube was grasped with Babcocks and a window was cauterized underneath the tube segment. There were no large vessels tracking through this area. 0 chromic was used to tie off the end of each tube segment. The tube segment was then removed using Metzenbaums. The tube was sent to pathology. The remaining fallopian tube was cauterized on each side. Excellent hemostasis was noted. The left fallopian tube was removed in a similar fashion. Excellent hemostasis was again noted. Next the posterior cul-de-sac was inspected and was cleared of any blood. The uterus was then placed back into the abdomen. The gutters were cleared of any further clots and debris and the uterine incision and fallopian tube segments were again inspected and hemostasis was noted. The subfascial tissue was inspected for hemostasis and the peritoneum was re-approximated using 2-0 plain in a running fashion. The fascia was then re-approximated using 0 Vicryl in a running fashion. The subcutaneous tissue was inspected for hemostasis. Jessica's fascia was then re-approximated using 3-0 plain in a running fashion. Good hemostasis was noted. The subcutaneous tissue was then re-approximated using a subcuticular stitch. The patient tolerated the procedure well and was recovered in stable condition. Estimated blood loss was 300 mL. Urine in the Urrutia catheter was clear. The patient was taken to recovery in good condition.
[2020-12-27] MEDS: ketorolac 30 mg/mL INJ IVP ×2 (13:41→19:39)
[2020-12-27] MEDS: dextrose 5%-lactated ringers 1,000 ML 125 ML IV ×2 (13:45→22:31)
--- NOTE | 2020-12-27 13:46 | ANE.PACU2 ---
Inpatient post-anesthesia follow up: Airway intact: Yes Vital signs: Temperature 95.4 F Pulse Rate 125 Respiratory Rate 18 Blood Pressure 129/91 Pulse Oximetry 100 Oxygen Delivery Me thod Room Air Oxygen Flow Rate Fraction of Inspir ed Oxygen Hydration adequate: Yes Nausea and vomiting: No Pain level: 2 Mental status: Baseline
--- NOTE | 2020-12-27 13:50 | PC.NURSE ---
Pt sat up on side of bed an dangled feet. No reports of nausea or dizziness. Pt then stood at bedside and ambulated to chair. Pt tolerated well and reported pain 4/10. Call light placed in pt reach.
[2020-12-27] MEDS: sodium chloride 0.9% 500 ML 999 ML IV (17:15)
[2020-12-27] MEDS: ferrous sulfate EC 325 mg Tablet PO (18:40)
[2020-12-27] MEDS: docusate sodium 100 mg Capsule PO (18:40)
[2020-12-27] MEDS: oxyCODONE-APAP 5-325 mg Tablet PO (20:53)
[2020-12-27 21:15] LABS: Hematocrit 31.2 % (37.0-47.0); Mean Corpuscular HGB Conc 32.1 g/dL (30.0-36.0); Mean Corpuscular Hemoglobin 26.7 pg (28.0-34.0); Mean Corpuscular Volume 83.4 fl (81-99); Mean Platelet Volume 11.8 fL (7.4-10.4); Platelet Count 218 10^3/cmm (130-400); Red Blood Count 3.74 10^6/uL (4.1-5.3); White Blood Count 9.7 10^3/uL (4.0-10.0)
[2020-12-28] VITALS (8 sets, daily range): BP systolic 100–115; BP diastolic 62–79; PULSE 64–76; RESP 16–18; TEMP 36.4–37.1; O2SAT 96
[2020-12-28] MEDS: ketorolac 30 mg/mL INJ IVP (01:34)
[2020-12-28] MEDS: oxyCODONE-APAP 5-325 mg Tablet PO ×4 (03:52→20:45)
[2020-12-28] MEDS: docusate sodium 100 mg Capsule PO ×2 (08:29→18:41)
[2020-12-28] MEDS: ferrous sulfate EC 325 mg Tablet PO ×2 (08:29→18:41)
[2020-12-28] MEDS: prenatal vitamin Capsule 1 CAP PO (08:29)
--- NOTE | 2020-12-28 08:31 | PM.PN ---
Subjective Subjective: Interval history: The patient is doing well at this time. She is ambulating, voiding, stooling and tolerating food by mouth. Her pain is well controlled. She is ready for cholecystectomy tomorrow. She is and it is going well. Vitals/I&O/Wt Last Vital Signs Temp 98.2 F 12/27/20 23:30 Pulse 72 12/27/20 23:30 Resp 16 12/28/20 03:52 BP 106/68 12/27/20 23:30 Pulse Ox 99 12/27/20 23:30 12/27/20 12/28/20 12/28/20 22:59 06:59 14:59 Intake Total 1604.750 / 4854.750 383.333 / 5238.083 Output Total 1220 / 2070 1800 / 3870 Balance 384.750 / 2784.750 -1416.667 / 1368.083 Weight last 48 hrs Weight 286 lb Physical Exam Narrative: EXAM NARRATIVE: General: Alert and oriented x3 Cardiac: Regular rate and rhythm without murmurs Lungs: Clear to auscultation bilaterally without wheezes, crackles or rhonchi Abdomen: Soft, mild diffuse tenderness. Fundus is firm and 2cm below the umbilicus. Incision is clean and dry without signs of infection or dehiscence. Extremities: Trace edema in the bilateral lower extremities Urinary Catheter Management^: Urrutia Latex Free: Cath Placed During This Visit: yes, but has since been removed by the nurse Reason for Continuing Indwelling Catheter: Decision to DC Catheter Urinary Catheter Date of Insertion: 12/27/20 Urinary Catheter Time of Insertion: 07:20 Date Urinary Catheter Removed: 12/28/20 Time Urinary Catheter Discontinued: 01:55 Data : 12/27/20 21:01 A&P Assessment and plan (1) Delivery by section: Status: Acute (2) Rubella non-immune status, antepartum: Status: Acute (3) Obesity: Status: Acute (4) Gallbladder disease: Status: Acute Additional A&P Information The patient is doing well today. Will continue with routine post- care. Instructions discussed. All questions answered. Okay to proceed with cholecystectomy tomorrow as scheduled. Attestations Medical Necessity Statement*: The patient continues to need inpatient care as she recovers from and will have cholecystectomy tomorrow. Her stay will cross two midnights. Coding Level of Care Code Acute Speech Language Pathologist for Chg Fwd Diagnoses Delivery by section Rubella non-immune status, antepartum O99.891; Z28.3 Obesity E66.9 Gallbladder disease K82.9
[2020-12-28] MEDS: ibuprofen 800 mg tablet PO ×3 (09:50→20:46)
[2020-12-28] MEDS: hyDROXYzine 25 mg Capsule 50 MG PO (16:47)
[2020-12-29] VITALS (14 sets, daily range): BP systolic 107–159; BP diastolic 75–94; PULSE 63–106; RESP 12–20; TEMP 36.3–37.2; O2SAT 97–100
[2020-12-29] MEDS: oxyCODONE-APAP 5-325 mg Tablet PO ×3 (00:45→14:23)
[2020-12-29] MEDS: sodium chloride 0.9% 1,000 ML 30 ML IV (06:27)
--- NOTE | 2020-12-29 06:31 | ANES.PREANE2 ---
Pre-Anesthetic Assessment Pre-Anesthetic Assessment: Height/Weight: Height 1.73 m Weight 129.727 kg Temp Pulse Resp BP Pulse Ox 97.7 F 75 18 128/80 100 12/29/20 06:19 12/29/20 06:19 12/29/20 06:19 12/29/20 06:19 12/29/20 06:19 Preop Diagnosis: cholelithiasis Proposed Procedure: Operation Date: 12/27/20 07:00 Proposed Procedures p Section Repeat With Tubal(Not Applicable) - Maury Luis MD Operation Date: 12/29/20 07:00 Proposed Procedures p Laparoscopic poss Open Cholecystectomy 24063 K82.9(Not Applicable) - Papito Peres MD Familial anesthetic complications: States she woke up during her wisdom teeth removal - does not seem to have been a general anesthestic by patient's description Was Beta Casie taken within 24 hours: N/A Was Clonidine taken within 24 hours: N/A Last intake: Intake Last Liquid Date 12/26/20 Last Liquid Time 22:00 Last Solid Date 12/26/20 Last Solid Time 19:00 Social: Social History: No alcohol and No tobacco Exam: Pre-Anes Outpt Exam: alert, oriented x 3, clear to auscultation bilaterally and regular rate & rhythm Airway: MP: 2 Dentition: Full Metabolic: Metabolic: Morbid obesity Anesthetic Plan: ASA status: 3 Anesthesia: General Other: Day 2 (s/p ) Risk of > 500 ml blood loss (7ml/kg in children): No Meds/Allergies Current Medications: Current Medications Generic Name Dose Route Start Last Admin Trade Name Freq PRN Reason Stop Dose Admin Docusate Sodium 100 mg 12/27/20 18:00 12/28/20 18:41 Docusate Sodium 100 Mg Capsule PO 100 mg BID RAMÍREZ Administration Ferrous Sulfate 325 mg 12/27/20 18:00 12/28/20 18:41 Ferrous Sulfate Ec 325 Mg Tablet PO 325 mg BIDWM RAMÍREZ Administration Hydroxyzine Pamoat e 50 mg 12/27/20 05:35 12/28/20 16:47 Hydroxyzine 25 M g Capsule PO 50 mg QID PRN Administration sleep, agitation or itching Lactated Ringer's 1,000 mls @ 125 m ls/hr 12/27/20 05:45 12/28/20 15:05 Lactated Ringers IV Not Given .Q8H RAMÍREZ Dextrose/Lactated Ringer's 1,000 mls @ 125 m ls/hr 12/27/20 05:45 12/28/20 01:35 Dextrose 5%-Lact ated Ringers IV Infused .Q8H RAMÍREZ Infusion Sodium Chloride 500 mls @ 999 mls /hr 12/27/20 09:09 12/27/20 17:46 Sodium Chloride 0.9% IV Infused .Q31M PRN Infusion urine output Dextrose/Lactated Ringer's 1,000 mls @ 125 m ls/hr 12/27/20 09:15 12/28/20 18:41 Dextrose 5%-Lact ated Ringers IV Not Given .Q8H RAMÍREZ Sodium Chloride 1,000 mls @ 30 ml s/hr 12/29/20 06:15 12/29/20 06:27 Sodium Chloride 0.9% IV 12/30/20 06:14 30 mls/hr .Q24H RAMÍREZ Administration Ibuprofen 800 mg 12/28/20 09:00 12/28/20 20:46 Ibuprofen 800 Mg Tablet PO 800 mg TID RAMÍREZ Administration Oxycodone/Acetamin ophen 1 - 2 tab 12/27/20 09:09 12/29/20 00:45 Oxycodone-Apap 5 -325 Mg Tablet PO 1 tab Q4H PRN Administration MODERATE TO SEVER E PAIN Multivit/ Folic Acid/Iron 1 cap 12/28/20 08:00 12/28/20 08:29 Vitamin Capsule PO 1 cap BREAKFAST RAMÍREZ Administration PFSH Anesthesia PFSH: Medical History History of gestational hypertension Surgical History History of x1 History of dental surgery Family History Other Dementia Diabetes Denies family history of CAD (coronary artery disease) Psychiatric illness Chronic kidney disease (CKD) Lung disease Cancer Stroke Social History Smoking and tobacco status: never smoked Second hand smoke exposure: No Alcohol intake: never Lives independently: Yes Household members: spouse and children Marital status: Female Reproductive History: : 2 Data Anesthesia CBC & Chem 7: 12/27/20 21:01 Other Labs: Laboratory Results - last 48 hr 12/27/20 21:01 WBC 9.7 RBC 3.74 L Hgb 10.0 L Hct 31.2 L MCV 83.4 MCH 26.7 L MCHC 32.1 RDW 15.0 Plt Count 218 MPV 11.8 H Cardiac Studies: No Data to Display
--- NOTE | 2020-12-29 06:54 | PM.PN ---
Subjective Subjective: Interval history: Patient doing well from her 2 days ago Vitals/I&O/Wt Last Vital Signs Temp 97.7 F 12/29/20 06:19 Pulse 75 12/29/20 06:19 Resp 18 12/29/20 06:19 BP 128/80 12/29/20 06:19 Pulse Ox 100 12/29/20 06:19 12/28/20 12/28/20 12/29/20 14:59 22:59 06:59 Intake Total 1000 / 1000 Output Total 2200 / 2200 Balance -1200 / -1200 Physical Exam Narrative: EXAM NARRATIVE: Abdomen: Soft Urinary Catheter Management^: Urrutia Latex Free: Cath Placed During This Visit: yes, but has since been removed by the nurse Reason for Continuing Indwelling Catheter: Decision to DC Catheter Urinary Catheter Date of Insertion: 12/27/20 Urinary Catheter Time of Insertion: 07:20 Date Urinary Catheter Removed: 12/28/20 Time Urinary Catheter Discontinued: 01:55 Data : 12/27/20 21:01 A&P Assessment and plan (1) Gallbladder disease: 30-year-old female postop day 2 status post with plan for laparoscopic possible open cholecystectomy given her history of symptomatic cholelithiasis Procedure, risks, benefits and alternatives have been discussed with the patient who wishes to proceed with surgery. Status: Acute Attestations Medical Necessity Statement*: Cholelithiasis Coding Level of Care Code Acute Refining Machine Operator for Amari Castro Diagnoses Gallbladder disease K82.9
[2020-12-29] MEDS: ciprofloxacin 400 MG/200 ML PREMIX 200 MG IV (07:00)
--- NOTE | 2020-12-29 08:28 | PM.OP ---
Operative Report Date of procedure: December 29, 2020 Pre-op Diagnosis: cholelithiasis Post-op Diagnosis: 1. Cholelithiasis 2. 2 centimeter umbilical hernia Procedure Done: 1. Laparoscopic cholecystectomy 2. Open primary repair of umbilical hernia Pathology: Gallbladder Hernia sac Surgeon: Papito Peres Anesthesia: General Estimated blood loss (mL): 25 Condition: stable Procedure: The patient was taken to the operating room and was intubated under general anesthesia. After the antibiotic had been administered, the abdomen was prepped and draped in a sterile manner. Using a #15 blade, a 1 centimeter infraumbilical curvilinear incision was made and using an open Yael technique the peritoneal cavity was entered. A 10 millimeter port was placed and 15 millimeters of pneumoperitoneum was created. A 10 millimeter, 30 degrees scope was then introduced. Three 5 millimeter ports were placed in the epigastric, midclavicular and the anterior axillary line two fingerbreadths below the costal margin on the right side under the direct visualization. Ratcheted forceps were introduced into the lateral most port and was used to retract the fundus of the gallbladder cephalad and using forceps the infundibulum of the gallbladder was retracted laterally. Using L-hook cautery the peritoneum overlying the Calot's triangle was opened medially and laterally until the cystic duct and the cystic artery were skeletonized. Dissection was carried along the body of the gallbladder and after ensuring critical view of safety, 4 clips applied on the cystic duct and 3 clips applied on the cystic artery and cut leaving, 3 clips on the remaining portion of the duct and 2 clips on the remaining portion of the artery. The rest of the gallbladder was dissected off the liver using L-hook cautery. There was bleeding from the posterior branch of the cystic artery which was controlled with cautery clips. There was no bleeding or bile leaking noted from the gallbladder fossa and the clips appeared to be in place. An EndoCatch bag was introduced to remove the gallbladder. All the ports were removed under direct visualization and there was no bleeding noted from the port sites. The umbilical hernia sac was identified and measured about 2 cm. The hernia sac was excised using electrocautery and the fascia of the umbilicus was closed primarily using interrupted 0 Vicryl sutures and the subcutaneous tissue was approximated using 3-0 Vicryl sutures. The skin at all four ports were closed using 4-0 Monocryl and Dermabond. A total of 10 millimeters of 0.5% Marcaine was infiltrated around the port sites. The patient was stable throughout the procedure.
[2020-12-29] MEDS: ibuprofen 800 mg tablet PO ×2 (09:43→14:23)
[2020-12-29] MEDS: docusate sodium 100 mg Capsule PO (09:43)
[2020-12-29] MEDS: prenatal vitamin Capsule 1 CAP PO (09:43)
[2020-12-29] MEDS: ferrous sulfate EC 325 mg Tablet PO (09:43)
--- NOTE | 2020-12-29 14:57 | P.DS_ITS ---
Discharge Providers Date of Admission: 12/27/20 05:00 Date of Discharge: December 29, 2020 Attending Provider at Admission: Maury Luis MD Attending Provider at Discharge: Maury Luis MD Diagnoses at Discharge Discharge Diagnosis (1) Gallbladder disease: Status: Resolved Other Information Additional DC diagnoses/information: 1. Intrauterine status post repeat low transverse with bilateral tubal ligation at 39.1 weeks gestation 2. History of low transverse section 3. Obesity 4. Gallbladder disease during 5. Rubella nonimmune 6. Clinically oligohydramnios 7. Nuchal cord x1 8. Delivery of healthy infant female weighing 8 pounds 5 ounces with Apgars of 9 and 9 Reason for Visit Reason for Visit: C SECTION [id number] Hospital Course Hospital Course The patient presented for a scheduled repeat low-transverse section with bilateral tubal ligation. The patient's surgery was uncomplicated and she has done well . The patient also had a follow-up cholecystectomy done by Dr. Peres that was also scheduled secondary to gallbladder disease. This had been delayed secondary to being . This was done on 12/29/2020. The patient has done well with this as well. Currently the patient is ambulating, voiding, passing gas and tolerating food by mouth. Her pain is well controlled. Routine discharge instructions were discussed with the patient and all questions were answered. The patient and her are in agreement with the current plan of care. Physical Exam Narrative: EXAM NARRATIVE: General: Alert and oriented x3 Cardiac: Regular rate and rhythm without murmurs Lungs: Clear to auscultation bilaterally without wheezes, crackles or rhonchi Abdomen: Soft, mild to moderate tenderness diffusely. No hepatosplenomegaly noted. Incision is clean and dry without signs of infection or dehiscence. Extremities: +1 pitting edema Urinary Catheter Management^: Urrutia Latex Free: Cath Placed During This Visit: yes, but has since been removed by the nurse Reason for Continuing Indwelling Catheter: Decision to DC Catheter Urinary Catheter Date of Insertion: 12/27/20 Urinary Catheter Time of Insertion: 07:20 Date Urinary Catheter Removed: 12/28/20 Time Urinary Catheter Discontinued: 01:55 Discharge Data Data Completed and Pending: Pending at discharge Category Date Time Status Pathology: Surgic al [PTH] Routine Pth 12/27/20 12:38 Received Pathology: Surgic al [PTH] Routine Pth 12/29/20 08:50 Received Vitals: Last Vital Signs Temp 98.6 F 12/29/20 13:50 Pulse 102 H 12/29/20 13:50 Resp 16 12/29/20 14:23 BP 120/80 12/29/20 13:50 Pulse Ox 100 12/29/20 09:00 Discharge Plan Discharge Patient Disposition: Home Condition: Good Prescriptions: New hydrocodone-acetaminophen 5-325 mg tablet 1 tab PO Q6H PRN (Reason: pain) Qty: 20 RF: 0 Zofran 4 mg tablet 4 mg PO Q6H PRN (Reason: nausea and vomiting) Qty: 20 RF: 0 Colace 100 mg capsule 100 mg PO BID Qty: 60 RF: 0 ibuprofen 800 mg Tablet 800 mg PO TID Qty: 60 RF: 0 Continued Allergy Relief (cetirizine) 10 mg capsule 10 mg PO DAILY PRN (Reason: Allergy Symptoms) RF: 0 PNV cmb#95-ferrous fumarate-FA [ Multivitamins] 28 mg iron- 800 mcg tablet 1 tab PO DAILY RF: 0 aspirin 81 mg tablet,delayed release (DR/EC) 81 mg PO DAILY RF: 0 Changed ferrous sulfate 325 mg (65 mg iron) Tablet 325 mg PO BIDWMEAL Qty: 60 RF: 0 Discharge Orders: Discharge Order (Routine); Ordered 12/29/20 Ordered By: Maury Luis Referrals: Papito Peres MD [Physician] - 01/18/21 10:15 am Maury Luis MD [Physician] - 01/03/21 1:45 pm Discharge Diet: Advance as tolerated Discharge Activity: Limit activity as instructed Patient Instructions: Your Baby (GEN), and Nipple Soreness (GEN), Laparoscopic Cholecystectomy (GEN), OB Caring for Baby - [facility], OB [facility], OB Discharge Report, OB Food/Drug Interaction Guide, Opioid Safety, OB Your Care - [facility] Activity Restrictions/Additional Instructions: Diet Advance to normal diet as tolerated, increase fluid intake as much as possible. Activity Avoid strenuous activity for 2 weeks but continue with daily activities including walking as tolerated. Do not lift more than 10 pounds for 3 weeks Return to work/school You can return to work/ school whenever you feel ready as long as you don?t have to lift more than 10 pounds at work. If you have paperwork that needs to be completed for time off from work, please contact my office Driving You can resume driving once you stop using narcotic pain medications, and transition to non-opioid pain medications like Tylenol, Motrin, Aleve, etc. I recommend waiting for two weeks. Medications Pain Take opioid pain medications as prescribed and transition to non-opioid pain medications like Tylenol, Motrin, Aleve etc. over the next few days. The goal of the pain medications is to make the pain bearable and not to be pain free since you recently had surgery. Resume all home medications after surgery as per the medication reconciliation list Nausea Nausea is common after surgery, take nausea medications as needed and stay on a liquid bland diet until nausea resolves. Constipation The combination of surgery, anesthesia and pain medications can result in constipation. Take stool softeners as prescribed. If you do not have a bowel movement in 3 days, please take an fdyw-bra-wohkoqm laxative like MiraLAX to address the constipation. Shower It is ok to shower but avoid getting the wound wet for 48 hours after surgery. Do not soak in bathtub, swimming pool or hot tub for 6 weeks. Wound care If glue has been used on your incisions after surgery, the glue on the incision will peel slowly over the next two weeks. The stitches used are dissolvable and will not need to be removed. Do not apply antibiotics or other medications on the incision Problems with the wound: you can develop some redness around the incision from bruising after surgery. If there is increasing pain, redness, tenderness around the incision with or without drainage, please contact my office to rule out an infection. Sometimes the skin at the incisions can separate, resulting in reopening of the wound. Cover the wound with antibiotic cream and sterile dressings and contact my office. Contact physician Call the office at [phone] during office hours or go the Emergency Room ?Fever to 100.4 or greater ?Shaking chills ?Pain that increases over time ?Redness, warmth, or pus draining from incision sites ?Persistent nausea or inability to take in liquids Discharge Attestations Time Spent in Discharge Care*: greater than 30 min Quality Metrics Clinical Quality Measures During this hospital stay, did patient experience: None Coding Level of Care Code Acute [facility] note Diagnoses Gallbladder disease K82.9
--- NOTE | 2020-12-29 15:43 | ANE.PACU2 ---
Inpatient post-anesthesia follow up: Airway intact: Yes Vital signs: Temperature 98.6 F Pulse Rate 102 Respiratory Rate 16 Blood Pressure 120/80 Pulse Oximetry 100 Oxygen Delivery Me thod Room Air Oxygen Flow Rate Fraction of Inspir ed Oxygen Hydration adequate: Yes Nausea and vomiting: No Pain level: 2 Mental status: Baseline
[2020-12-29] MEDS: measles,mumps,rubella pf Vial (w/diluent) 0.5 ML SUBCUT (15:48)
== END 2020-12-29 16:30 | disposition home or self-care (01) | DRG 784 ==
PROVIDERS: Surgery; Admitting Provider Family Medicine; Visit Provider Family Medicine
PROC: 10D00Z1 Extraction of Products of Conception, Low, Open Approach (ICD-10-PCS; CPT 59514; principal; 2020-12-27 07:00)
PROC: 0FT44ZZ Resection of Gallbladder, Percutaneous Endoscopic Approach (ICD-10-PCS; CPT 47562; principal; 2020-12-29 07:00)
PROC: 0WQF0ZZ Repair Abdominal Wall, Open Approach (ICD-10-PCS; 2020-12-29 07:00)
DX: O34.211 Maternal care for low transverse scar from previous cesarean delivery (principal); O41.03X0 Oligohydramnios, third trimester, not applicable or unspecified; Z3A.39 39 weeks gestation of pregnancy; Z37.0 Single live birth; O99.214 Obesity complicating childbirth; O69.2XX0 Labor and delivery complicated by other cord entanglement, with compression, not applicable or unspecified; O99.62 Diseases of the digestive system complicating childbirth; K80.20 Calculus of gallbladder without cholecystitis without obstruction; O75.89 Other specified complications of labor and delivery; K42.9 Umbilical hernia without obstruction or gangrene; Z30.2 Encounter for sterilization
CPT/HCPCS: 36415; 51702; 58611; 59025; 59409; 85025; 85027; 88302; 88304; 90707; 96372; 96374; 96376; 98960; J0330; J0744; J1100; J1580; J1885; J2250; J2274; J2370; J2405; J2704; J2710; J2765; J3010; J3490; J7030; J7040

== ENCOUNTER → 2020-12-29 | Day surgery (SDC) | payer OTHER, BC, MEDICAID, SELFPAY | PROVIDERS: PCP Family Medicine; Visit Provider Surgery | DX: Z01.818 Encounter for other preprocedural examination (principal); K82.9 Disease of gallbladder, unspecified | CPT/HCPCS: J0330; J1100; J2250; J2405; J2704; J2710; J3010; J3490 ==

== ENCOUNTER → 2021-11-19 12:03 | Outpatient (BNVA) | payer BC, SELFPAY | PROVIDERS: PCP Family Medicine; Visit Provider Registered Nurse Neonatal Intensive Care | DX: M25.572 Pain in left ankle and joints of left foot (principal); S99.912A Unspecified injury of left ankle, initial encounter; W10.8XXA Fall (on) (from) other stairs and steps, initial encounter; R60.0 Localized edema | CPT/HCPCS: 73610 ==